=== PATIENT | male | born 2000 | race Hispanic/Latino ===

== ENCOUNTER 2021-03-18 02:21 | Inpatient (IN) | payer OTHER ==
[2021-03-18] MEDS ORDERED: Calcium Chloride 1 GM/10 ML Abboject SYRINGE ONE ×2 (02:32→07:58)
[2021-03-18] MEDS ORDERED: Sodium Bicarb 50 MEQ/50 ML Abboject 8.4% SYRINGE ONE ×2 (02:32→03:23)
[2021-03-18] MEDS ORDERED: CEFAZOLIN 1 GM VIAL ONE ×2 (02:39)
[2021-03-18 02:44] LABS: INR-International Normal Ratio 1.8; Prothrombin Time 21.4 sec (12.0-14.7)
[2021-03-18 02:45] LABS: PTT 81.8 sec (22.9-36.1)
[2021-03-18] MEDS ORDERED: Boostrix 0.5 ML (Tdap) VIAL ONE (02:45)
[2021-03-18 02:48] LABS: Hemoglobin 14.1 g/dL (14.0-18.0); Mean Corpuscular HGB CONC 34.8 g/dL (32.0-36.0); Mean Corpuscular Hemoglobin 32.7 pg (25.0-35.0); Mean Corpuscular Volume 93.9 fL (78.0-98.0); Mean Platelet Volume 7.4 fL (7.4-10.4); Platelet Count 207 thou/uL (130-400); RBC Distribution Width 10.9 % (11.5-14.5); Red Blood Cell (RBC) Count 4.32 mill/uL (4.00-5.20); White Blood Cell (WBC) Count 14.6 thou/uL (4.8-10.8)
[2021-03-18 02:51] LABS: ALT (SGPT) 476 U/L (8-55); AST (SGOT) 401 U/L (5-34); Albumin 3.4 g/dL (3.5-5.0); Alkaline Phosphatase 118 U/L (50-130); Anion Gap 20 mmol/L (10-20); BUN (Urea Nitrogen) 21 mg/dL (8.9-20.6); Bilirubin, Total 0.5 mg/dL (0.2-1.2); Calc. Creatinine Clearance 0 mL/min (70-130); Calcium 8.2 mg/dL (7.8-10.44); Carbon Dioxide 17 mmol/L (22-29); Chloride 106 mmol/L (98-107); Globulin 2.7 g/dL (2.4-3.5); Potassium 3.3 mmol/L (3.5-5.1); Protein, Total 6.1 g/dL (6.0-8.3); Sodium 140 mmol/L (136-145)
[2021-03-18 02:57] LABS: Glucose 297 mg/dL (70-105)
[2021-03-18 03:05] LABS: Anisocytosis SLIGHT = 6-15 cells (100X) (0-5/hpf); Band 5 % (5-11); Eosinophils 1 % (0-10); Lymphocytes 68 % (28-48); MDiff Complete? YES; Monocytes 4 % (0-4); Neutrophil 22 % (31-61); Nucleated RBC 1 % (0)
[2021-03-18] MEDS ORDERED: Fentanyl 100 MCG/2 ML VIAL ONE (03:16)
[2021-03-18 03:19] LABS: Actual Bicarbonate (HCO3a) 14.8 mEq/L (22-28); Analyzer IN Cardio ER; Base Excess (BEa) -18.5 mEq/L (-2.0 to +3.0); Calcium, Ionized (arterial) 1.06 mmol/L (1.12-1.30); Carboxyhemoglobin (COHb) 0.3 gm% (0.0-3.0); Hemoglobin (Hb) 13.3 g/dL (14.0-18.0); O2 Tension (PaO2), arterial 192.7 mmHg (80.0-100.0); Potassium - ABG Lab 3.76 mmol/L (3.70-5.30)
[2021-03-18] MEDS ORDERED: Propofol 1,000 MG/100 ML VIAL IV ONE (03:21)
[2021-03-18 03:26] LABS: CO2 Tension 73.5 mmHg (35.0-45.0); Puncture Site RRA; pH, Arterial 6.92 (7.35-7.45)
[2021-03-18 03:27] LABS: ALV-art Gradient 428.425 mmHg (0-20)
[2021-03-18] MEDS ORDERED: Norepinephrine 8 MG/0.9% NS 250 ML ONE ×3 (03:35→09:20)
[2021-03-18] MEDS ORDERED: Fentanyl CADD 100 ML IV SCH ×2 (03:45→05:45)
[2021-03-18 03:50] LABS: Actual Bicarbonate (HCO3a) 20.7 mEq/L (22-28); Analyzer IN Cardio ER; Base Excess (BEa) -5.8 mEq/L (-2.0 to +3.0); CO2 Tension 44.6 mmHg (35.0-45.0); Carboxyhemoglobin (COHb) 0.3 gm% (0.0-3.0); Hemoglobin (Hb) 12.3 g/dL (14.0-18.0); Potassium - ABG Lab 3.67 mmol/L (3.70-5.30); pH, Arterial 7.29 (7.35-7.45)
[2021-03-18] MEDS ORDERED: Dextrose 50% Abboject 50 ML SYRINGE SLOW IVP PRN (04:05)
[2021-03-18] MEDS ORDERED: Dextrose 5% in Water 1,000 ML IV PRN (04:05)
[2021-03-18] MEDS ORDERED: hydrALAZINE 20 MG/ML VIAL SLOW IVP PRN (04:05)
[2021-03-18] MEDS ORDERED: Ondansetron PF 4 MG/2 ML Vial IVP PRN (04:05)
[2021-03-18] MEDS ORDERED: Acetaminophen 650 MG/20.3 ML UDCUP PO PRN (04:10)
[2021-03-18] MEDS ORDERED: Ventilator Sedation Protocol 1 EACH FS SCH (04:15)
[2021-03-18] MEDS ORDERED: manNITOL 20% 500 ML ONE (04:23)
[2021-03-18 05:26] LABS: Puncture Site RRA
[2021-03-18 05:27] LABS: Bilirubin Negative (Negative); Blood, Urine Large (Negative); Glucose, Urine (Dipstick) 100 mg/dL (Negative); Ketone, Urine Negative (Negative); Leukocyte Negative (Negative); Nitrite Negative (Negative); Protein, Urine (Dipstick) 100 mg/dL (Neg-Trace); Urobilinogen 0.2 mg/dL (Less than 2)
[2021-03-18 05:28] LABS: Bacteria/HPF Rare-Few HPF (None Seen); Clarity Turbid (Clear); RBC/HPF Greater than 50 HPF (0-3); Squamous Epithelial None Seen HPF (0-3)
[2021-03-18 05:31] LABS: Lactic Acid 2.9 mmol/L (0.5-2.2)
[2021-03-18] MEDS ORDERED: Lorazepam 2 MG/ML VIAL SLOW IVP PRN (05:45)
[2021-03-18] MEDS ORDERED: Propofol BOLUS 1,000 MG/100 ML VIAL IV PRN (05:45)
[2021-03-18] MEDS ORDERED: Fentanyl BOLUS 250 ML IVPB PRN (05:45)
[2021-03-18] MEDS ORDERED: Morphine 2 MG/ML VIAL SLOW IVP PRN (05:45)
[2021-03-18] MEDS ORDERED: DISCONTINUE PREVIOUS NARCOTIC PAIN MEDICATIONS AND BENZODIAZEPINES FS SCH (05:45)
[2021-03-18] MEDS ORDERED: Propofol 1,000 MG/100 ML VIAL IV PRN (05:45)
[2021-03-18 05:48] LABS: Actual Bicarbonate (HCO3a) 25.5 mEq/L (22-28); Analyzer IN Cardio ER; Base Excess (BEa) -1.7 mEq/L (-2.0 to +3.0); CO2 Tension 54.3 mmHg (35.0-45.0); Calcium, Ionized (arterial) 1.09 mmol/L (1.12-1.30); Carboxyhemoglobin (COHb) 0.2 gm% (0.0-3.0); Hemoglobin (Hb) 11.9 g/dL (14.0-18.0); Potassium - ABG Lab 4.27 mmol/L (3.70-5.30); pH, Arterial 7.29 (7.35-7.45)
[2021-03-18 05:58] LABS: SARS-CoV-2 NAA Rapid Test Not Detected (NotDetected)
[2021-03-18] MEDS ORDERED: Hydrocortisone Sod Succ/PF 500 mg/4 ml Vial SLOW IVP SCH (06:15)
[2021-03-18] MEDS ORDERED: Refresh Lacri-lube Opth Oint 7 GM TUBE FS SCH (06:15)
[2021-03-18] MEDS ORDERED: Fentanyl CADD 100 ML ONE (06:16)
[2021-03-18 06:22] LABS: Hemoglobin 11.4 g/dL (14.0-18.0); Mean Corpuscular HGB CONC 34.7 g/dL (32.0-36.0); Mean Corpuscular Hemoglobin 31.1 pg (27.0-31.0); Mean Corpuscular Volume 89.7 fL (78.0-98.0); Mean Platelet Volume 6.7 fL (7.4-10.4); Platelet Count 197 thou/uL (130-400); RBC Distribution Width 11.2 % (11.5-14.5); Red Blood Cell (RBC) Count 3.66 mill/uL (4.70-6.10); White Blood Cell (WBC) Count 9.7 thou/uL (4.8-10.8)
[2021-03-18 06:32] LABS: Base Excess (BEa) -4.9 mEq/L (-2.0 to +3.0); CO2 Tension 36.3 mmHg (35.0-45.0); Calcium, Ionized (arterial) 1.05 mmol/L (1.12-1.30); Carboxyhemoglobin (COHb) 0.3 gm% (0.0-3.0); Hemoglobin (Hb) 10.9 g/dL (14.0-18.0); Potassium - ABG Lab 3.95 mmol/L (3.70-5.30); pH, Arterial 7.36 (7.35-7.45)
[2021-03-18] MEDS: Sodium Chloride 0.9% 1,000 ML IV SCH ×2 (06:36→13:26)
[2021-03-18 06:39] LABS: Phosphorus 4.6 mg/dL (2.3-4.7)
[2021-03-18 06:43] LABS: Band 27 % (5-11); Lymphocytes 30 % (21-51); MDiff Complete? YES; Monocytes 4 % (0-10); Myelocyte 1 % (0-0); Neutrophil 38 % (42-75)
[2021-03-18] MEDS ORDERED: Phenylephrine 0.25% Nasal Spray 15 ML BOT ONE (06:46)
[2021-03-18 06:47] LABS: ALT (SGPT) 264 U/L (8-55); AST (SGOT) 285 U/L (5-34); Alkaline Phosphatase 86 U/L (40-110); Anion Gap 13 mmol/L (10-20); BUN (Urea Nitrogen) 24 mg/dL (8.9-20.6); Calc. Creatinine Clearance 94 mL/min (70-130); Carbon Dioxide 26 mmol/L (22-29); Chloride 108 mmol/L (98-107); Glucose 115 mg/dL (70-105); Magnesium 1.7 mg/dL (1.6-2.6); Potassium 4.5 mmol/L (3.5-5.1); Sodium 142 mmol/L (136-145)
[2021-03-18] MEDS: Calcium Chloride 1 GM/10 ML Abboject SYRINGE ONE (06:50)
[2021-03-18 06:55] LABS: INR-International Normal Ratio 1.7; PTT 58.8 sec (22.9-36.1); Prothrombin Time 20.3 sec (12.0-14.7)
[2021-03-18] MEDS ORDERED: Sterile Water 10 ML ONE (06:55)
[2021-03-18] MEDS: Hydrocortisone Sod Succ/PF 100 mg/2 ml Vial IVP SCH ×4 (06:56→21:03)
[2021-03-18] MEDS ORDERED: Phenylephrine 40 MG/NS 250 ML 250 ML IVPB SCH (07:00)
[2021-03-18] MEDS: Phytonadione 10 MG/ML AMP SLOW IVP SCH ×2 (07:03→12:50)
[2021-03-18 07:38] LABS: O2 Tension (PaO2), arterial 48.3 mmHg (80.0-100.0); Puncture Site Arterial Line
[2021-03-18 07:39] LABS: ALV-art Gradient 619.325 mmHg (0-20)
[2021-03-18] MEDS: Phenylephrine 40 MG in Sodium Chloride 0.9% 250 ML 250 ML IVPB SCH ×4 (07:50→20:10)
[2021-03-18 08:07] LABS: Amphetamine Not Detected (NotDetected); Barbiturates Screen Not Detected (NotDetected); Benzodiazepine Screen Not Detected (NotDetected); Cocaine Metabolite Screen Not Detected (NotDetected); Methadone Not Detected (NotDetected); Methamphetamine Not Detected (NotDetected); Opiate Screen Not Detected (NotDetected); Oxycodone Screen Not Detected (NotDetected); Phencyclidine (PCP) Not Detected (NotDetected); THC/Cannabinoid Screen Not Detected (NotDetected); Tricyclic Screen Not Detected (NotDetected)
[2021-03-18] MEDS ORDERED: Albumin 5% 500 ML ONE (08:12)
[2021-03-18] MEDS ORDERED: Calcium Chloride 1 GM/10 ML Abboject SYRINGE IVP SCH (08:45)
[2021-03-18] MEDS ORDERED: Magnesium Sulfate 3 GM in Sodium Chloride 0.9% 250 ML 250 ML IVPB SCH (09:00)
[2021-03-18] MEDS: Famotidine/PF 20 mg/2ml Vial SLOW IVP SCH ×2 (09:11→21:03)
[2021-03-18] MEDS: Vasopressin 20 UNIT, Admixture Fee 1 EACH in Sodium Chloride 0.9% 50 ML IV SCH ×2 (09:22→17:25)
[2021-03-18] MEDS: Levothyroxine Sodium 400 MCG in Sodium Chloride 0.9% 100 ML IVPB SCH ×3 (11:00→20:10)
[2021-03-18] MEDS ORDERED: Iopamidol 370 76% 100 ML VIAL ONE (11:06)
[2021-03-18] MEDS ORDERED: Phytonadione 10 MG/ML AMP SLOW IVP SCH (12:00)
[2021-03-18] MEDS ORDERED: Norepinephrine 8 MG in Dextrose 5% in Water 242 ML IVPB PRN (12:15)
[2021-03-18] MEDS ORDERED: Norepinephrine 8 MG/250 ML IVPB SCH (13:30)
[2021-03-18] MEDS ORDERED: Sodium Chloride 0.9% 1,000 ML IV SCH (17:15)
[2021-03-18 19:44] LABS: O2 Tension (PaO2), arterial 46.8 mmHg (80.0-100.0)
[2021-03-18 19:45] LABS: ALV-art Gradient 598.325 mmHg (0-20); Puncture Site RRA
[2021-03-18] MEDS: HumaLOG 300 UNITS/3 ML VIAL SC PRN (20:09)
[2021-03-18 20:34] LABS: Phosphorus 4.2 mg/dL (2.3-4.7)
[2021-03-18 20:37] LABS: Hemoglobin 7.7 g/dL (14.0-18.0); Mean Corpuscular HGB CONC 35.5 g/dL (32.0-36.0); Mean Corpuscular Hemoglobin 31.9 pg (25.0-35.0); Mean Corpuscular Volume 89.9 fL (78.0-98.0); RBC Distribution Width 11.7 % (11.5-14.5); Red Blood Cell (RBC) Count 2.39 mill/uL (4.00-5.20); White Blood Cell (WBC) Count 31.9 thou/uL (4.8-10.8)
[2021-03-18 20:40] LABS: Lactic Acid 9.2 mmol/L (0.5-2.2)
[2021-03-18 20:49] LABS: CK (CPK) 7076 U/L (30-200)
[2021-03-18 20:56] LABS: Anion Gap 19 mmol/L (10-20); BUN (Urea Nitrogen) 31 mg/dL (8.9-20.6); Calc. Creatinine Clearance 97 mL/min (70-130); Calcium 9.6 mg/dL (7.8-10.44); Carbon Dioxide 16 mmol/L (22-29); Chloride 118 mmol/L (98-107); Glucose 215 mg/dL (70-105); Magnesium 1.8 mg/dL (1.7-2.2); Potassium 4.5 mmol/L (3.5-5.1); Sodium 148 mmol/L (136-145)
[2021-03-18 21:06] LABS: Band 34 % (5-11); Lymphocytes 8 % (28-48); MDiff Complete? YES; Myelocyte 1 % (0-0); Neutrophil 57 % (31-61); Platelet Count 121 thou/uL (130-400)
[2021-03-18 21:26] LABS: Actual Bicarbonate (HCO3a) 15.8 mEq/L (22-28); Base Excess (BEa) -8.7 mEq/L (-2.0 to +3.0); CO2 Tension 28.4 mmHg (35.0-45.0); Calcium, Ionized (arterial) 1.24 mmol/L (1.12-1.30); Carboxyhemoglobin (COHb) 0.7 gm% (0.0-3.0); Hemoglobin (Hb) 7.1 g/dL (11.4-15.4); O2 Tension (PaO2), arterial 220.4 mmHg (80.0-100.0); Potassium - ABG Lab 4.12 mmol/L (3.70-5.30); pH, Arterial 7.36 (7.35-7.45)
[2021-03-18 21:27] LABS: Puncture Site LINE
[2021-03-18] MEDS: Lactated Ringer's 1,000 ML IV SCH (21:42)
[2021-03-18] MEDS ORDERED: Fentanyl 100 MCG/2 ML VIAL SLOW IVP SCH (22:30)
[2021-03-18] MEDS ORDERED: Magnesium 2 GM/50 ML 2 GM in Premix Bag 1 BAG IVPB SCH (22:45)
[2021-03-19] MEDS: HumaLOG 300 UNITS/3 ML VIAL SC PRN ×2 (00:24→05:19)
[2021-03-19] MEDS ORDERED: Fentanyl CADD 100 ML ONE (00:59)
[2021-03-19] MEDS ORDERED: Metoprolol Tartrate 5 MG/5 ML VIAL IVP SCH (03:45)
[2021-03-19 04:09] LABS: ALT (SGPT) 242 U/L (8-55); AST (SGOT) 326 U/L (5-34); Albumin 3.1 g/dL (3.5-5.0); Alkaline Phosphatase 77 U/L (50-130); Anion Gap 14 mmol/L (10-20); BUN (Urea Nitrogen) 25 mg/dL (8.9-20.6); Bilirubin, Total 1.1 mg/dL (0.2-1.2); Calc. Creatinine Clearance 112 mL/min (70-130); Calcium 9.5 mg/dL (7.8-10.44); Carbon Dioxide 23 mmol/L (22-29); Chloride 120 mmol/L (98-107); Globulin 1.9 g/dL (2.4-3.5); Glucose 154 mg/dL (70-105); Magnesium 2.3 mg/dL (1.7-2.2); Phosphorus 4.2 mg/dL (2.3-4.7); Potassium 5.1 mmol/L (3.5-5.1); Sodium 152 mmol/L (136-145)
[2021-03-19 04:24] LABS: Lactic Acid 5.2 mmol/L (0.5-2.2)
[2021-03-19] MEDS: Lactated Ringer's 1,000 ML IV SCH ×3 (04:24→17:45)
[2021-03-19 04:35] LABS: CK (CPK) 9978 U/L (30-200)
[2021-03-19 05:18] LABS: Band 37 % (5-11); Hemoglobin 9.8 g/dL (14.0-18.0); Lymphocytes 14 % (28-48); MDiff Complete? YES; Mean Corpuscular HGB CONC 34.8 g/dL (32.0-36.0); Mean Corpuscular Hemoglobin 31.2 pg (25.0-35.0); Mean Corpuscular Volume 89.6 fL (78.0-98.0); Mean Platelet Volume 8.6 fL (7.4-10.4); Monocytes 4 % (0-4); Neutrophil 45 % (31-61); Platelet Count 110 thou/uL (130-400); Platelet Morphology Comment Appears Decreased; RBC Distribution Width 12.7 % (11.5-14.5); Red Blood Cell (RBC) Count 3.14 mill/uL (4.00-5.20); White Blood Cell (WBC) Count 26.4 thou/uL (4.8-10.8)
[2021-03-19] MEDS: Hydrocortisone Sod Succ/PF 100 mg/2 ml Vial IVP SCH ×2 (05:19→14:00)
[2021-03-19 08:15] LABS: Actual Bicarbonate (HCO3a) 18.7 mEq/L (22-28); Base Excess (BEa) -3.3 mEq/L (-2.0 to +3.0); Calcium, Ionized (arterial) 1.25 mmol/L (1.12-1.30); Carboxyhemoglobin (COHb) 0.3 gm% (0.0-3.0); Hemoglobin (Hb) 9.9 g/dL (11.4-15.4); Potassium - ABG Lab 4.62 mmol/L (3.70-5.30)
[2021-03-19 08:32] LABS: CO2 Tension 24.4 mmHg (35.0-45.0); Puncture Site Arterial Line
[2021-03-19] MEDS: Famotidine/PF 20 mg/2ml Vial SLOW IVP SCH (09:49)
[2021-03-19] MEDS ORDERED: Vasopressin 20 UNIT, Admixture Fee 1 EACH in Sodium Chloride 0.9% 50 ML IV SCH (10:15)
[2021-03-19 10:17] LABS: Actual Bicarbonate (HCO3a) 22.5 mEq/L (22-28); CO2 Tension 32.9 mmHg (35.0-45.0); Calcium, Ionized (arterial) 1.25 mmol/L (1.12-1.30); Carboxyhemoglobin (COHb) 0.3 gm% (0.0-3.0); Hemoglobin (Hb) 9.6 g/dL (11.4-15.4); O2 Tension (PaO2), arterial 81.9 mmHg (80.0-100.0); Potassium - ABG Lab 4.86 mmol/L (3.70-5.30); pH, Arterial 7.45 (7.35-7.45)
[2021-03-19 10:33] LABS: Puncture Site RRA
[2021-03-19 10:34] LABS: ALV-art Gradient 304.775 mmHg (0-20)
[2021-03-19 11:21] LABS: Actual Bicarbonate (HCO3a) 21.9 mEq/L (22-28); Base Excess (BEa) -1.7 mEq/L (-2.0 to +3.0); CO2 Tension 32.5 mmHg (35.0-45.0); Calcium, Ionized (arterial) 1.24 mmol/L (1.12-1.30); Carboxyhemoglobin (COHb) 0.3 gm% (0.0-3.0); Hemoglobin (Hb) 9.3 g/dL (11.4-15.4); O2 Tension (PaO2), arterial 359.1 mmHg (80.0-100.0); pH, Arterial 7.45 (7.35-7.45)
[2021-03-19 11:36] LABS: Base Excess (BEa) -2.1 mEq/L (-2.0 to +3.0); CO2 Tension 34.8 mmHg (35.0-45.0); Calcium, Ionized (arterial) 1.24 mmol/L (1.12-1.30); Carboxyhemoglobin (COHb) 0.3 gm% (0.0-3.0); Hemoglobin (Hb) 9.3 g/dL (11.4-15.4); O2 Tension (PaO2), arterial 339.3 mmHg (80.0-100.0); Potassium - ABG Lab 4.53 mmol/L (3.70-5.30); pH, Arterial 7.42 (7.35-7.45)
[2021-03-19 11:53] LABS: Actual Bicarbonate (HCO3a) 27.7 mEq/L (22-28); Base Excess (BEa) -2.4 mEq/L (-2.0 to +3.0); Calcium, Ionized (arterial) 1.33 mmol/L (1.12-1.30); Carboxyhemoglobin (COHb) 0.3 gm% (0.0-3.0); Hemoglobin (Hb) 9.7 g/dL (11.4-15.4); Potassium - ABG Lab 4.54 mmol/L (3.70-5.30)
[2021-03-19 12:01] LABS: pH, Arterial 7.14 (7.35-7.45)
[2021-03-19 12:02] LABS: CO2 Tension 84.2 mmHg (35.0-45.0); Puncture Site RBA
[2021-03-19 12:05] LABS: Puncture Site RBA
[2021-03-19 12:07] LABS: ALV-art Gradient 313.275 mmHg (0-20); Puncture Site RRA
[2021-03-19] MEDS: Levothyroxine Sodium 400 MCG in Sodium Chloride 0.9% 100 ML IVPB SCH (12:17)
[2021-03-19 13:30] VITALS: BMI 28.6
[2021-03-19 15:18] VITALS: BP 126/76
[2021-03-19 20:00] VITALS: TEMP 98.6
== END 2021-03-19 14:39 | disposition expired | DRG 963 ==
LOC: EDBD 02:21 → ERS 02:21 → UNDOADMIN 04:05 → CCU 04:05 → EDBD 04:05
PROVIDERS: ADMIT Specialist; ATTEND Specialist
PROC: 0BH18EZ Insertion of Endotracheal Airway into Trachea, Via Natural or Artificial Opening Endoscopic (ICD-10-PCS; principal; 2021-03-18)
PROC: 5A1945Z Respiratory Ventilation, 24-96 Consecutive Hours (ICD-10-PCS; 2021-03-18)
PROC: 0D9670Z Drainage of Stomach with Drainage Device, Via Natural or Artificial Opening (ICD-10-PCS; 2021-03-18)
PROC: 05H633Z Insertion of Infusion Device into Left Subclavian Vein, Percutaneous Approach (ICD-10-PCS; 2021-03-18)
PROC: 5A12012 Performance of Cardiac Output, Single, Manual (ICD-10-PCS; 2021-03-18)
PROC: 3E033XZ Introduction of Vasopressor into Peripheral Vein, Percutaneous Approach (ICD-10-PCS; 2021-03-18)
PROC: 30233K1 Transfusion of Nonautologous Frozen Plasma into Peripheral Vein, Percutaneous Approach (ICD-10-PCS; 2021-03-18)
PROC: 30233N1 Transfusion of Nonautologous Red Blood Cells into Peripheral Vein, Percutaneous Approach (ICD-10-PCS; 2021-03-18)
PROC: 30233R1 Transfusion of Nonautologous Platelets into Peripheral Vein, Percutaneous Approach (ICD-10-PCS; 2021-03-18)
PROC: 30233M1 Transfusion of Nonautologous Plasma Cryoprecipitate into Peripheral Vein, Percutaneous Approach (ICD-10-PCS; 2021-03-18)
DX: G93.6 Cerebral edema; S37.012A Minor contusion of left kidney, initial encounter; T79.4XXA Traumatic shock, initial encounter; J96.90 Respiratory failure, unspecified, unspecified whether with hypoxia or hypercapnia; G93.5 Compression of brain; I77.71 Dissection of carotid artery; G93.1 Anoxic brain damage, not elsewhere classified; S37.011A Minor contusion of right kidney, initial encounter; E23.2 Diabetes insipidus; Z23 Encounter for immunization; Z20.822 Contact with and (suspected) exposure to COVID-19; S00.81XA Abrasion of other part of head, initial encounter; S60.512A Abrasion of left hand, initial encounter; S60.511A Abrasion of right hand, initial encounter; S90.812A Abrasion, left foot, initial encounter; S90.811A Abrasion, right foot, initial encounter; S80.11XA Contusion of right lower leg, initial encounter; S02.113A Unspecified occipital condyle fracture, initial encounter for closed fracture; S02.2XXA Fracture of nasal bones, initial encounter for closed fracture; R40.2432 Glasgow coma scale score 3-8, at arrival to emergency department; I46.9 Cardiac arrest, cause unspecified; Z78.1 Physical restraint status; V03.10XA Pedestrian on foot injured in collision with car, pick-up truck or van in traffic accident, initial encounter; Y93.01 Activity, walking, marching and hiking; Y92.410 Unspecified street and highway as the place of occurrence of the external cause
CPT/HCPCS: 31500; 36415; 36416; 36430; 36556; 36600; 51702; 70450; 70486; 70498; 71045; 71260; 72125; 72170; 74177; 78610; 80053; 80306; 80307; 81003; 81015; 82550; 82805; 83605; 83735; 83930; 83935; 84100; 84145; 85025; 85384; 85610; 85730; 86850; 86900; 86901; 90471; 90715; 93005; 94002; 94003; 94640; 96365; 96366; 96368; 96374; 96375; A9521; G0390; J0690; J1720; J1815; J2370; J2597; J2704; J3010; J3430; J3475; J3490; J7050; J7120; J7620; J7799; P9012; P9016; P9035; P9045; P9048; P9059; Q9967; S0028; U0002